=== PATIENT | male | born 1985 | race Hispanic/Latino ===

== ENCOUNTER 2023-03-14 10:45 | Emergency (ER) | payer SELFPAY ==
--- NOTE | ~2023-03-14 | XR_ITS ---
XR lumbar spine 2-3V DATE: 03/14/2023 11:45 INDICATION: Follow lateral on 03/14/2023. Chest and back pain. TECHNIQUE: AP, lateral, coned lateral lumbosacral views COMPARISON: None FINDINGS: Slight anterior wedge compression fractures of undetermined age of T12 and T11. Normal alignment of the lumbar spine. No fracture or bone destruction or spondylolisthesis of the lum bar spine. Lumbar and lumbosacral interspaces are well preserved. The included lower thoracic and lum bar pedicles are intact. The sacroiliac joints appear normal. IMPRESSION: Slight anterior wedge compression fractures of undetermined age of T12 and T11 Reviewed, dictated and finalized at location A.
--- NOTE | ~2023-03-14 | XR_ITS ---
XR thoracic spine 3V DATE: 03/14/2023 11:45 INDICATION: Fell off of ladder on 03/14/2023. Back pain. TECHNIQUE: AP, lateral, swimmer views COMPARISON: None FINDINGS: There is slight anterior wedging and loss of height at T10 and T11 suggesting mild compress ion fractures of uncertain age. IMPRESSION: Slight anterior wedging and loss of height of T10 and T11, suggesting small compression f ractures of uncertain age Reviewed, dictated and finalized at location A. IMPRESSION: Slight anterior wedging and loss of height of T10 and T11, suggesti ng small compression fractures of uncertain age
--- NOTE | ~2023-03-14 | XR_ITS ---
XR chest 2V DATE: 03/14/2023 11:44 INDICATION: Fell off a ladder on 03/14/2023. Chest and back pain. TECHNIQUE: 2 views COMPARISON: None FINDINGS: Normal heart size. No hilar or mediastinal enlargement. No pulmonary infiltrate or consolid ation, pleural effusion or pulmonary vascular congestion or pneumothorax. IMPRESSION: Negative Reviewed, dictated and finalized at location A. IMPRESSION: Negative
[2023-03-14 10:56] VITALS: BP 110/70; PULSE 60; RESP 20; TEMP 36.7; O2SAT 100
--- NOTE | 2023-03-14 11:02 | ED.FALL ---
HPI - Fall General Chief Complaint: Fall Stated Complaint: fell off a ladder Time Seen by Provider: 03/14/23 11:02 Source: patient Mode of arrival: ambulatory Limitations: no limitations History of Present Illness HPI Narrative: Mr. Hooks is a 37-year-old male patient presenting to the clinic today with complaints of pain/injury after falling off of a ladder. He reports pain to his sternum, mid back, bilateral flank, and upper low back. He reports he fell off a ladder approximately 15 ft in the air and landed on the ground hitting his right hip/right torso. This occurred approximately 30 minutes prior to arrival. He denies hitting his head or any neck pain. No loss of consciousness. Related Data Home Medications Medication Instructions Recorded Confirmed No Home Medications 03/14/23 03/14/23 Allergies Allergy/AdvReac Type Severity Reaction Status Date / Time No Known Allergies Allergy Verified 03/14/23 11:08 Review of Systems Review of Systems: Pertinent positives per HPI. Patient denies any fever, chills, rash, headache, visual changes, dizziness, cough, runny nose, sore throat, shortness of breath, palpitations, nausea, vomiting, diarrhea, constipation, or any urinary issues. PMFSH Comments At the time of my signature, I reviewed and agree with the nursing past medical, surgical, social, and family history. There is no relevant family history pertinent to the patient complaint. Exam Narrative: General: Well-developed, well nourished, in no apparent distress Head: Normocephalic, atraumatic. Cardio: Regular rate and rhythm, s1 and s2 normal, no murmur appreciated. Resp: Clear to auscultation bilaterally, no rhonchi, rales, wheezing or rubs. Abdomen: Soft, pliable, nondistended, bowel sounds present in all quadrants, tender to palpation of the bilateral upper quadrants, no organomegly, positive bilateral CVAT tenderness. Musculoskeletal: No deformity, no tenderness to the head or cervical spine, tender to palpation over the upper mid back and the upper lumbar spine, pain to palpation over the musculature bilaterally in the mid and low back, pain in his low back when raising his right and left leg, negative foot drop, grossly normal range of motion, muscle strength strong and equal, peripheral pulse strong, no edema, no cyanosis, normal gait and station Course Course Emergency Course: Portions of this record may have been created with voice recognition software. Level of Care: Express Care Visit Vital Signs Vital signs: Vital signs reviewed Transfer Transfered to: [facility] Transportation: Other (private car) Transfer rationale: 15 foot fall, trauma, anterior compression fracture t10-t11, hematuria, and proteinurea, flank pain, upper abdomen pain, mid and low back pain. Accepting physician: Melinda Transfer comments: Tranfer via private car- friend driving. MDM - Fall MDM Narrative Medical decision making narrative: At the time of visit patient is resting in the wheelchair. Patient does have a steady gait with ambulation. Having midthoracic and upper lumbar spine pain. Reports flank pain and some upper abdominal pain as well. UA did was performed and shows positive blood and protein. Chest x-ray was negative -no sign of sternum fracture, thoracic and lumbar spine x-rays were performed that shows a anterior compression wedge fracture of T10-T11 and T11-T12. Recommend transfer to the ER for further evaluation and patient agrees. Contacted Olesya SALAZAR at [facility] and she accepts patient for transfer. Patient's vital signs are stable at this time. Patient transferred via private car Differential Diagnosis Differential diagnosis: Likely other (Trauma, fall from 15 ft, thoracic spine fracture, kidney trauma, abdominal trauma, hematuria, proteinuria, flank pain with upper abdominal pain. Contusion, soft tissue injury) Imaging Data Radiologist's impression: Close Chest X-Ray (Signed) Ricky
[2023-03-14 11:09] VITALS: RESP 20
== END 2023-03-14 12:11 | disposition short-term general hospital (02) ==
PROVIDERS: Emergency Provider Nurse Practitioner Family
DX: R10.9 Unspecified abdominal pain (principal); M54.2 Cervicalgia; M54.6 Pain in thoracic spine; R07.89 Other chest pain; R31.9 Hematuria, unspecified; R80.9 Proteinuria, unspecified; W11.XXXA Fall on and from ladder, initial encounter
CPT/HCPCS: 71046; 72072; 72100; 81003; 99214; G0463

== ENCOUNTER 2023-03-14 12:36 | Emergency (ER) | payer SELFPAY ==
--- NOTE | ~2023-03-14 | CT_ITS ---
EXAMINATION: CT abdomen pelvis w con DATE: 03/14/2023 17:09 INDICATION: Flank pain. Hematuria. Fall from ladder. TECHNIQUE: Computed tomography (CT) of the abdomen and pelvis was performed with 100 mL Omnipaque 350 intravenous contrast. Automated exposure control and iterative reconstruction technique were employe d. The dose-length product was 371.85 mGy-cm. COMPARISON: None. FINDINGS: The visualized portions of the lung bases demonstrate mild atelectasis. No pleural effusion . The heart size is normal. No pericardial effusion. The liver, gallbladder, spleen, pancreas, adrena l glands, and kidneys are normal. The bladder is distended. There are no dilated loops of bowel. The appendix is normal. There are no pathologically enlarged lymph nodes. There are compression fractures of T11 and T12 with less than 1/5 loss of height. IMPRESSION: 1. Compression fractures of T11 and T12. Reviewed, dictated and finalized at location E.
[2023-03-14 12:40] VITALS: BP 138/77; PULSE 58; RESP 18; TEMP 36.3; O2SAT 100
[2023-03-14 13:22] LABS: Basophils Absolute Auto 0.1 K/mm3 (0.0-0.1); Basophils Percent Auto 0.4 % (0.2-1.2); Eosinophils Absolute Auto 0.1 K/mm3 (0-0.3); Eosinophils Percent Auto 0.3 % (0-4.4); Hematocrit 43.8 % (42.0-52.0); Immature Granulocyte Absolute 0.22 K/mm3 (0.00-0.031); Immature Granulocyte Percent A 1.5 % (0-0.5); Lymphocytes Absolute Auto 0.95 K/mm3 (0.9-3.2); Lymphocytes Percent Auto 6.3 % (18.3-44.2); Mean Corpuscular Hemoglobin 26.7 pg (26-34); Mean Corpuscular Volume 83.4 fl (80-100); Mean Platelet Volume 10.7 fl (7.4-10.4); Monocytes Absolute Auto 0.8 K/mm3 (0.1-0.6); Monocytes Percent Auto 5.5 % (2.6-8.5); Neutrophils Absolute Auto 13.1 K/mm3 (1.3-6.7); Platelet Count Result 245 k/mm3 (150-375); Red Blood Count 5.25 M/mm3 (4.6-6.20); White Blood Count 15.2 K/mm3 (4.5-10.0)
[2023-03-14 13:23] LABS: Appearance Urine Clear (Clear); Bilirubin Urine Negative (Negative); Blood Urine Negative (Negative); Color Urine Yellow (Yellow); Glucose Urine UA Negative (Negative); Ketones Urine Negative (Negative); Leukocyte Esterase Ur Negative LEU/UL (Negative); Nitrate Urine Negative (Negative); Protein Urine Negative (Negative); Specific Grav Ur 1.016 (1.001-1.035); Urobilinogen Urine 0.2 mg/dL (<2.0)
[2023-03-14 13:30] LABS: Add Urine Microscopic? NO
[2023-03-14 13:32] LABS: Alanine Aminotransferase 52 U/L (6-50); Albumin Level 4.4 g/dL (3.5-5.1); Alkaline Phosphatase 53 U/L (38-126); Anion Gap 3 mmol/L (8-16); Aspartate Amino Transferase 75 U/L (17-59); Bilirubin,Total 0.4 mg/dL (0.2-1.3); Blood Urea Nitrogen 18 mg/dL (9-20); Carbon Dioxide 30 mmol/L (22-30); Chloride 106 mmol/L (98-107); Estimated CRCL calculation 86 ml/min; Estimated Glomerular Filt Rate > 60; Glucose 93 mg/dL (65-110); Lipase 105 U/L (23-300); Potassium 4.3 mmol/L (3.4-5.0); Sodium 139 mmol/L (137-145)
[2023-03-14] MEDS: MORPHINE SULFATE (*CRX) 4 MG/ML INJ IV PUSH (15:52)
[2023-03-14 16:50] VITALS: BP 118/89; PULSE 63; RESP 17; O2SAT 99
--- NOTE | 2023-03-14 17:40 | ED.GENADULT ---
HPI - General Adult General Chief complaint: Abdominal Pain Stated complaint: Left flank pain Time Seen by Provider: 03/14/23 15:32 History of Present Illness HPI narrative: Patient is a 37-year-old male who presents ER after fall from ladder. It is reported that he was 15 feet in the air when he lost his balance and fell off onto his side. He did not strike his head or lose consciousness. He has some mild pain to his right lateral abdominal wall near the pelvis and also reports some mild discomfort to his left back. He had an x-ray that showed some vertebral compression fractures and then he had a urinalysis that showed blood. He was sent here from urgent care for further evaluation given the hematuria and they requested a CT scan. Patient's had no gross blood in his urine. He has no numbness or weakness to the legs. He reports that he has no pain in the midline of his back and is able to twist and bend without issue. He has no known previous fractures of his back. Patient is ambulatory without issue. History obtained through his significant other who is translating. Related Data Allergies Allergy/AdvReac Type Severity Reaction Status Date / Time No Known Allergies Allergy Verified 03/14/23 11:08 Review of Systems Review of Systems: All systems reviewed & are unremarkable except as noted in HPI and below Constitutional: Constitutional: Reports no additional constitutional complaints Cardiovascular: Cardiovascular: Reports no additional cardiovascular complaints Respiratory: Respiratory: Reports no additional respiratory complaints Genitourinary: Genitourinary: Reports no additional male genitourinary complaints Musculoskeletal: Musculoskeletal: Reports back pain, Denies arthralgias and Denies joint swelling Neurologic: Denies syncope, Denies headache(s), Denies focal weakness and Denies numbness PMFSH Past Medical History Medical History (Updated 03/14/23 @ 19:04 by Balaji Steel MD) Healthy adult male Surgical History Surgical History (Updated 03/14/23 @ 19:04 by Balaji Steel MD) No pertinent past surgical history Exam Narrative: GENERAL: Well-appearing, well-nourished, and in no acute distress. HEAD: Normocephalic, atraumatic. EYES: PERRL and EOMI. ENT: Mucous membranes moist. CHEST: Clear to auscultation. No respiratory distress. No visual evidence of trauma. HEART: Regular rate and rhythm. Normal peripheral pulses. ABDOMEN: Soft, nontender, nondistended. Back: No reproducible midline tenderness to T/L spine or the paraspinal musculature. Exposure shows no step-off/abrasion/contusions EXTREMITIES: Normal range of motion. No edema. SKIN: Warm, dry, no rash. NEURO: Alert and oriented x3. PSYCH: Normal mood and affect. Course Course Emergency Course: Compression fractures may be old. Patient given strict return precautions and also given spine referral. No evidence of intra-abdominal injury. Patient will be discharged with pain control and has no additional concerns. Instructed patient to avoid heavy lifting. Vital Signs Vital signs: Vital Signs Temperature 97.4 F L 03/14/23 12:40 Pulse Rate 58 L 03/14/23 12:40 Respiratory Rate 18 03/14/23 12:40 Blood Pressure 138/77 03/14/23 12:40 Pulse Oximetry 100 03/14/23 12:40 Oxygen Delivery Room Air 03/14/23 12:40 Temperature 97.4 F L 03/14/23 12:40 Pulse Rate 65 03/14/23 17:52 Respiratory Rate 15 03/14/23 17:52 Blood Pressure 132/79 03/14/23 17:52 Pulse Oximetry 98 03/14/23 17:52 Oxygen Delivery Room Air 03/14/23 12:40 Medical Decision Making Vital Signs Vital Signs: Vital Signs Temperature 97.4 F L 03/14/23 12:40 Pulse Rate 58 L 03/14/23 12:40 Respiratory Rate 18 03/14/23 12:40 Blood Pressure 138/77 03/14/23 12:40 Pulse Oximetry 100 03/14/23 12:40 Oxygen Delivery Room Air 03/14/23 12:40 Temperature 97.4 F L 03/14/23 12:40 Pulse Rate 65 07/16
[2023-03-14 17:52] VITALS: BP 132/79; PULSE 65; RESP 15; O2SAT 98
== END 2023-03-14 17:53 | disposition home or self-care (01) ==
PROVIDERS: Emergency Provider Emergency Medicine
DX: S22.080A Wedge compression fracture of T11-T12 vertebra, initial encounter for closed fracture (principal); W11.XXXA Fall on and from ladder, initial encounter
CPT/HCPCS: 36415; 74177; 80053; 81003; 83690; 85025; 96374; 99284; J2270; Q9967